=== PATIENT | male | born 1965 ===

== ENCOUNTER → 2018-01-05 | Emergency (ER) | payer OTHER ==
[~2018-01-05] VITALS: Ht 167.6 cm; Wt 69.9 kg
[~2018-01-05] MED LIST: CIPRO500 MG PO; PERCOCET 5-3251 EACH; TAMS0.4C
== END | disposition home or self-care (01) ==
LOC: ER 10:05
DX: N20.0 Calculus of kidney (principal); R10.32 Left lower quadrant pain

== ENCOUNTER → 2018-01-07 | Emergency (ER) | payer OTHER ==
[~2018-01-07] VITALS: Ht 165.1 cm; Wt 68.0 kg
== END | disposition home or self-care (01) ==
LOC: ER 01:07
DX: N20.0 Calculus of kidney (principal); R10.32 Left lower quadrant pain